=== PATIENT | male | born 1935 | race Caucasian/White ===

== ENCOUNTER 2016-07-22 13:15 | Day surgery (SDC) | payer MEDICARE, OTHER ==
[~2016-07-22 13:15] MED LIST: CELEXA20 MG PO; CORDARONE200 MG PO; COREG6.25 MG PO; DUONEB 3.0-0.5 M3 ML INH; FLOMAX0.4 MG PO; IMDUR30 MG PO; JANUVIA100 MG PO; KLONOPIN0.5 MG PO; KLONOPIN1 MG PO; KLOR-CON M2020 MEQ PO; LASIX40 MG PO; MICRONASE5 MG PO; MUCINEX600 MG PO; PRAVACHOL20 MG PO; PRINIVIL10 MG PO; SULINDAC200 MG PO; TYLENOL325 MG PO; XALATAN 0.005%2.5 ML EYEBOTH; ZYLOPRIM300 MG PO
== END 2016-07-22 14:05 | disposition short-term general hospital (02) ==
LOC: SURGOP 13:15
PROC: 0TJB8ZZ Inspection of Bladder, Via Natural or Artificial Opening Endoscopic (ICD-10-PCS; principal; 2016-07-22)
DX: Z08 Encounter for follow-up examination after completed treatment for malignant neoplasm (principal); Z85.51 Personal history of malignant neoplasm of bladder